=== PATIENT | male | born 1995 | race Caucasian/White ===

== ENCOUNTER 2018-07-04 17:00 | Emergency (ER) | payer BC ==
--- NOTE | 2018-07-04 17:27 | EDM.PDOC ---
ED HPI GENERAL MEDICAL PROBLEM - General Chief Complaint: Upper Extremity Injury/Pain Stated Complaint: PT HURT RT THUMB Time Seen by Provider: 07/04/18 17:05 Source of Information: Reports: Patient History Limitations: Reports: No Limitations - History of Present Illness INITIAL COMMENTS - FREE TEXT/NARRATIVE: History of present illness: []Patient slammed his right distal thumb in a car door 3 days ago. Patient feels it's "fractured or broken". He denies any numbness or tingling but has continuing pain. Review of systems: As per history of present illness and below otherwise all systems reviewed and negative. Past medical history: As per history of present illness and as reviewed below otherwise noncontributory. Surgical history: As per history of present illness and as reviewed below otherwise noncontributory. Social history: No reported history of drug or alcohol abuse. Family history: As per history of present illness and as reviewed below otherwise noncontributory. Physical exam: General: Well developed, well nourished in NAD HEENT: Atraumatic, normocephalic, pupils reactive, negative for conjunctival pallor or scleral icterus, mucous membranes moist, throat clear, neck supple, nontender, trachea midline. Lungs: Clear to auscultation, breath sounds equal bilaterally, chest nontender. Heart: S1S2, regular, negative for clicks, rubs, or JVD. Abdomen: Soft, nondistended, nontender. Negative for masses or hepatosplenomegaly. Negative for costovertebral tenderness. Pelvis: Stable nontender. Genitourinary: Deferred. Rectal: Deferred. Extremities: Atraumatic, no obvious deformities, no swelling or ecchymosis of the right thumb.. Neurovascular unremarkable. Neuro: Awake, alert, oriented. Cranial nerves II through XII unremarkable. Cerebellum unremarkable. Motor and sensory unremarkable throughout. Exam nonfocal. Skin:warm and dry Diagnostics: X-ray Therapeutics: None ED Course: Unremarkable Impression: Right thumb contusion Prescriptions: None Plan: Motrin, Tylenol for pain. Definitive disposition and diagnosis as appropriate pending reevaluation and review of above. Right 1-Thumb Pain Score (Numeric/FACES): 5 - Related Data Allergies Allergy/AdvReac Type Severity Reaction Status Date / Time No Known Allergies Allergy Verified 07/04/18 17:16 Home Meds: Home Meds . [No Known Home Meds] 07/04/18 [History] Past Medical History - Past Health History Medical/Surgical History: Denies Medical/Surgical History - Infectious Disease History Infectious Disease History: Reports: None Social & Family History - Family History Family Medical History: Noncontributory - Tobacco Use Smoking Status *Q: Never Smoker - Caffeine Use Caffeine Use: Reports: None - Recreational Drug Use Recreational Drug Use: No Review of Systems - Review of Systems Review Of Systems: ROS reveals no pertinent complaints other than HPI. ED EXAM, GENERAL - Physical Exam Exam: See Below (See history of present illness) Course - Vital Signs Last Recorded V/S: Last Vital Signs Temp 98.2 F 07/04/18 17:16 Pulse 75 07/04/18 17:16 Resp 16 07/04/18 17:16 BP 128/66 07/04/18 17:16 Pulse Ox 97 07/04/18 17:16 - Orders/Labs/Meds Orders: Active Orders 24 hr Category Date Time Status Fingers Thumb Rt F5 [CR] Stat Exams 07/04/18 17:10 Taken Departure - Departure Time of Disposition: 18:26 Disposition: Home, Self-Care 01 Condition: Good Clinical Impression: Contusion of right thumb Qualifiers: Encounter type: initial encounter - Discharge Information *PRESCRIPTION DRUG MONITORING PROGRAM REVIEWED*: No *COPY OF PRESCRIPTION DRUG MONITORING REPORT IN PATIENT THELMA: No Referrals: PCP,None [Primary Care Provider] - Forms: ED Department Discharge Additional Instructions: The following information is given to patients seen in the emergency department who are being discharged to home. This information is to outline your options for follow-up care. We provide all patients seen in our emergency department with a follow-up referral. The need for follow-up, as well as the timing and circumstances, are variable depending upon the specifics of your emergency department visit. If you don't have a primary care physician on staff, we will provide you with a referral. We always advise you to contact your personal physician following an emergency department visit to inform them of the circumstance of the visit and for follow-up with them and/or the need for any referrals to a consulting specialist. The emergency department will also refer you to a specialist when appropriate. This referral assures that you have the opportunity for follow-up care with a specialist. All of these measure are taken in an effort to provide you with optimal care, which includes your follow-up. Under all circumstances we always encourage you to contact your private physician who remains a resource for coordinating your care. When calling for follow-up care, please make the office aware that this follow-up is from your recent emergency room visit. If for any reason you are refused follow-up, please contact the [facility] Emergency Department at and asked to speak to the emergency department charge nurse. [facility] Primary Care [address] [place] [address] - My Orders Last 24 Hours: My Active Orders 07/04/18 17:10 Fingers Thumb Rt F5 [CR] Stat - Assessment/Plan Last 24 Hours: My Active Orders 07/04/18 17:10 Fingers Thumb Rt F5 [CR] Stat
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
== END 2018-07-04 18:45 | disposition home or self-care (01) ==
LOC: MW.ED 17:00
DX: S60.011A Contusion of right thumb without damage to nail, initial encounter (principal); W23.0XXA Caught, crushed, jammed, or pinched between moving objects, initial encounter
CPT/HCPCS: 73140-26-F5; 73140-F5; 99283

== ENCOUNTER 2019-08-03 04:08 | Emergency (ER) | payer SELFPAY ==
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
== END 2019-08-03 04:27 | disposition home or self-care (01) ==
LOC: MW.ED 04:08
DX: Z02.89 Encounter for other administrative examinations (principal)
CPT/HCPCS: 82962; 99283

== ENCOUNTER 2021-08-28 20:07 | Emergency (ER) | payer BC | END 2021-08-28 22:17 | disposition left against medical advice (07) | LOC: MW.ED 20:07 | DX: M54.9 Dorsalgia, unspecified (principal); Z53.21 Procedure and treatment not carried out due to patient leaving prior to being seen by health care provider ==

== ENCOUNTER 2021-09-04 02:10 | Emergency (ER) | payer BC ==
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
== END 2021-09-04 05:40 | disposition home or self-care (01) ==
LOC: MW.ED 02:10
DX: F10.129 Alcohol abuse with intoxication, unspecified (principal)
CPT/HCPCS: 99284

== ENCOUNTER 2021-09-06 13:49 | Emergency (ER) | payer BC ==
--- NOTE | 2021-09-06 14:06 | EDM.PDOC ---
ED HPI GENERAL MEDICAL PROBLEM - General Stated Complaint: PAIN IN NECK Time Seen by Provider: 09/06/21 14:05 Source of Information: Reports: Patient History Limitations: Reports: No Limitations - History of Present Illness INITIAL COMMENTS - FREE TEXT/NARRATIVE: HISTORY AND PHYSICAL: History of present illness: Patient is a 26-year-old male who presents to the emergency room with complaints of generalized neck pain, worse on the right that radiates down his right arm with mild paresthesias. He states he has noticed this over the past 1 week, worse with rotating his neck side to side. He states the pain and paresthesias are intermittent, lasting anywhere from a few seconds to hours. He did have surgery approximately 4 years ago to his cervical spine due to a bulging disc. He states he does have hardware and has not had any postoperative complications. He denies any injury, trauma or falls. He denies any weakness or Patient denies any fever, chills, headache, change in vision, syncope or near syncope. Denies any chest pain, back pain, shortness of breath or cough. Denies any abdominal pain, nausea, vomiting, diarrhea, constipation or dysuria. Has not noted any blood in urine or stool. Patient has been eating and drinking appropriately. No recent travel or sick contacts. Review of systems: As per history of present illness and below otherwise all systems reviewed and negative. Past medical history: As per history of present illness and as reviewed below otherwise noncontributory. Surgical history: As per history of present illness and as reviewed below otherwise noncon tributory. Social history: See social history for further information Family history: As per history of present illness and as reviewed below otherwise noncontributory. Physical exam: General: Well developed and well nourished. Alert and orientated x 3. Nontoxic in appearance and in no acute distress. Vital signs are stable and have been reviewed by me. Nursing notes were reviewed. HEENT: Atraumatic, normocephalic, pupils equal and reactive bilaterally, negative for conjunctival pallor or scleral icterus, mucous membranes moist, TMs normal bilaterally, throat clear, neck supple, nontender, trachea midline. No drooling or trismus noted. No meningeal signs. No hot potato voice noted. Lungs: Clear to auscultation bilaterally. No wheezes, rales, or rhonchi. Chest nontender. Normal work of breathing, no accessory muscles used. Heart: S1S2, regular rate and rhythm without overt murmur, gallops, or rubs. No JVD. No peripheral edema Abdomen: Soft, nondistended, nontender. Normoactive bowel sounds. Negative for masses or costovertebral tenderness. C-spine/Back: No pinpoint vertebral tenderness upon palpation. No crepitus, step-offs or obvious deformities. Generalized paraspinous tenderness bilaterally to the cervical spine, scars noted. Pain does go into the right trapezius muscle. Patient is ambulatory into the emergency room without difficulty or deficit. Able to rock back on heels and walk on toes. Denies any urinary or fecal incontinence. Denies any numbness, tingling or saddle paresthesia. No concerns of serious infection, fracture or cord compression, or cauda equina syndrome. Deep tendon reflexes brisk bilaterally. Skin: Healed scare to mid c-spine. Intact, warm, dry. No lesions or rashes noted. Hematologic: No petechiae or purpra. Mucosa appropriate color and normal nail bed color and refill. Extremities: Atraumatic, moves all extremities per self without difficulty or deficits, negative for cords or calf pain. Equal strength to upper and lower extremities bilaterally. Negative can test. Neurovascular unremarkable. Neuro: Awake, alert, oriented. Cranial nerves II through XII unremarkable. Cerebellum unremarkable. Motor and sensory unremarkable throughout. Exam nonfocal. Psychiatric: Mood and affect are appropriate. Normal thought process. Answering questions appropriately. Please note that the patient was seen and evaluated during the 2019 SARS-CoV-2 novel coronavirus pandemic period. Community viral transmission is ongoing at time of this encounter and the emergency department is operating under pandemic response procedures. Medical Decision Making: Patient is a 26-year-old male who has a history of cervical neck surgery 4 years ago who presents to the emergency room with increased cervical neck pain over the past 1 week. He states he does have intermittent paresthesias and pain with range of motion. He states his range of motion is not limited and he has not had any loss of strength or mobility. He reports he had an x-ray done a few months ago for pain although no findings were noted. Due to surgery and hardware letter will do a CT scan. CT shows posterior C3-C6 postop changes, as above. Multilevel spondylosis without significant bony canal stenosis. Moderate bony foraminal stenosis on the left at C3-4 and on the right at C4-5. Lordosis noted. I have talked with the patient about today's findings, in addition to providing specific details for plan of care. I did encourage patient to follow-up with his primary care provider for an outpatient MRI for further evaluation of the stenosis. Currently has no neurological symptoms and does not meet requirements for inpatient MRI. Reassessment at the time of disposition demonstrates that the patient is in no acute distress. Patient states he would prefer to follow-up with occupational health and have the MRI, requesting to not return to work until he is cleared. The patient is stable for discharge, counseling was provided and we discussed in great detail signs and symptoms that would prompt them to return to the Emergency Department. Medication, follow up and supportive care measures were reviewed and discussed. Voices understanding and is agreeable to plan of care. Denies any further questions or concerns at this time. Diagnostics: CT cervical spine Therapeutics: Toradol Prescription: Diclofenac, Norflex Impression: Neck pain Plan: 1. Imaging today shows no acute fractures or dislocations. There is some foraminal stenosis on the left at C3-C4 and right at C4-C5, may want to consider getting an MRI as an outpatient for further evaluation of this 2. When resting please lay on a flat firm surface. Limit your immobility to prevent muscle stiffness. Get up to ambulate/move around/gentle stretching multiple times throughout the day. May alternate heat and ice to the painful areas 3. Tylenol as needed for back pain. Otherwise take the prescribed Flexeril and diclofenac as directed. Diclofenac is an anti-inflammatory so do not take any a dditional NSAIDs with this medication, such as ibuprofen or Aleve. Flexeril as a muscle relaxant, this medication may cause drowsiness a do not take it will driving her needing to be functioning outside of the house. 4. Please follow-up with your primary care provider as we discussed. 5. If your symptoms should worsen, new symptoms develop or any of the signs and symptoms we discussed should arise please return to the emergency room or call 911 (if needed). Definitive disposition and diagnosis as appropriate pending reevaluation and review of above. Right Neck Pain Score (Numeric/FACES): 9 - Related Data Allergies Allergy/AdvReac Type Severity Reaction Status Date / Time No Known Allergies Allergy Verified 09/06/21 14:01 Home Meds: Home Meds Cyclobenzaprine [Flexeril] 10 mg PO TID PRN #21 tab 09/06/21 [Rx] Diclofenac Sodium [Voltaren] 75 mg PO BIDMEALS PRN #14 tab.cr 09/06/21 [Rx] Past Medical History - Past Health History Medical/Surgical History: Denies Medical/Surgical History - Infectious Disease History Infectious Disease History: Reports: None - Past Surgical History Musculoskeletal Surgical History: Reports: Other (See Below) Other Musculoskeletal Surgeries/Procedures:: neck surgery Social & Family History - Family History Family Medical History: No Pertinent Family History - Caffeine Use Caffeine Use: Reports: None ED ROS GENERAL - Review of Systems Review Of Systems: Comprehensive ROS is negative, except as noted in HPI. ED EXAM, UPPER BACK/NECK PAIN - Physical Exam Exam: See Below (See dictation) Course - Vital Signs Last Recorded V/S: Last Vital Signs Temp 98.4 F 09/06/21 14:01 Pulse 68 09/06/21 15:01 Resp 16 09/06/21 15:01 BP 121/62 09/06/21 15:01 Pulse Ox 96 09/06/21 15:01 - Orders/Labs/Meds Meds: Medications Discontinued Medications Generic Name Dose Route Start Last Admin Trade Name Freq PRN Reason Stop Dose Admin Ketorolac Tromethamine 60 mg 09/06/21 14:12 09/06/21 14:31 Ketorolac 60 Mg/2 Ml Sdv IM 09/06/21 14:13 60 mg ONETIME ONE Administration Departure - Departure Time of Disposition: 14:37 Disposition: Home, Self-Care 01 Clinical Impression: Neck muscle strain Qualifiers: Encounter type: initial encounter Qualified Code(s): S16.1XXA - Strain of muscle, fascia and tendon at neck level, initial encounter - Discharge Information Prescriptions: Cyclobenzaprine [Flexeril] 10 mg PO TID PRN #21 tab PRN Reason: Muscle Spasm Diclofenac Sodium [Voltaren] 75 mg PO BIDMEALS PRN #14 tab.cr PRN Reason: Pain Instructions: Muscle Strain, [id number] Referrals: PCP,None [Primary Care Provider] - Additional Instructions: The following information is given to patients seen in the emergency department who are being discharged to home. This information is to outline your options for follow-up care. We provide all patients seen in our emergency department with a follow-up referral. The need for follow-up, as well as the timing and circumstances, are variable depending upon the specifics of your emergency department visit. If you don't have a primary care physician on staff, we will provide you with a referral. We always advise you to contact your personal physician following an emergency department visit to inform them of the circumstance of the visit and for follow-up with them and/or the need for any referrals to a consulting specialist. The emergency department will also refer you to a specialist when appropriate. This referral assures that you have the opportunity for follow-up care with a specialist. All of these measure are taken in an effort to provide you with optimal care, which includes your follow-up. Under all circumstances we always encourage you to contact your private physician who remains a resource for coordinating your care. When calling for follow-up care, please make the office aware that this follow-up is from your recent emergency room visit. If for any reason you are refused follow-up, please contact the [facility] Emergency Department at and asked to speak to the emergency department charge nurse. [facility] [address] [place] [id number] [facility] [address] [place] [id number] Thank you for choosing the [facility] emergency department in [place] for your medical needs today. It was a pleasure caring for you. Today you were seen in the emergency department for neck pain Your prescription was electronically sent to: [place] [facility] 1. Imaging today shows no acute fractures or dislocations. There is some foraminal stenosis on the left at C3-C4 and right at C4-C5, may want to consider getting an MRI as an outpatient for further evaluation of this 2. When resting please lay on a flat firm surface. Limit your immobility to prevent muscle stiffness. Get up to ambulate/move around/gentle stretching multiple times throughout the day. May alternate heat and ice to the painful areas 3. Tylenol as needed for back pain. Otherwise take the prescribed Flexeril and diclofenac as directed. Diclofenac is an anti-inflammatory so do not take any additional NSAIDs with this medication, such as ibuprofen or Aleve. Flexeril as a muscle relaxant, this medication may cause drowsiness a do not take it will driving her needing to be functioning outside of the house. 4. Please follow-up with your primary care provider as we discussed. 5. If your symptoms should worsen, new symptoms develop or any of the signs and symptoms we discussed should arise please return to the emergency room or call 911 (if needed). Sepsis Event Note (ED) - Evaluation Sepsis Screening Result: No Definite Risk - Focused Exam Vital Signs: Vital Signs Temp Pulse Resp BP Pulse Ox 09/06/21 15:01 68 16 121/62 96 09/06/21 14:01 98.4 F 70 16 123/52 L 96
[2021-09-06] MEDS ORDERED: Ketorolac 60 MG/2 ML SDV IM ONE (14:12)
--- NOTE | 2021-09-06 15:32 | CT ---
INDICATION: Right neck pain and radiculopathy. Spinal fusion 4 years ago. TECHNIQUE: Volumetric helical scanning of the cervical spine was performed without contrast material. Sagittal and coronal reconstructions were also obtained. COMPARISON: None. FINDINGS: Postop changes of C3 posterior decompression are demonstrated as well as left C4, C5 and C6 laminectomies with placement of straps and screws across the laminectomy defects. No intersegment fusion is evident. Multilevel spondylosis is demonstrated. No significant bony canal stenosis is evident. Moderate bony foraminal stenosis noted on the left at C3-4 and on the right at C4-5. Last the cervical spine is a lordotic. IMPRESSION: 1. Posterior C3-C6 postop changes, as above. 2. Multilevel spondylosis without significant bony canal stenosis. 3. Moderate bony foraminal stenosis on the left at C3-4 and on the right at C4-5. Consider MRI. 4. Alordosis. Please note that all CT scans at this facility use dose modulation, iterative reconstruction, and/or weight-based dosing when appropriate to reduce radiation dose to as low as reasonably achievable. Dictated by Hermes Loza MD @ 09/06/2021 3:30:09 PM (Electronically Signed)
== END 2021-09-06 16:17 | disposition home or self-care (01) ==
LOC: MW.ED 13:49
DX: S16.1XXA Strain of muscle, fascia and tendon at neck level, initial encounter (principal); X58.XXXA Exposure to other specified factors, initial encounter
CPT/HCPCS: 72125; 96372; 99283; J1885

== ENCOUNTER 2023-04-07 21:44 | Emergency (ER) | payer BC | END 2023-04-08 01:40 | disposition left against medical advice (07) | LOC: MW.ED 21:44 | DX: Z53.21 Procedure and treatment not carried out due to patient leaving prior to being seen by health care provider (principal) ==

== ENCOUNTER 2024-04-24 23:38 | Emergency (ER) | payer SELFPAY ==
[2024-04-25] MEDS: Lidocaine 1% with EPINEPHrine 1:100,000 10 ML MDV INJECT ONE (01:35)
[2024-04-25] MEDS: Lidocaine 2% Viscous Solution 15 ML UD PO STA (01:36)
[2024-04-25] MEDS: Ibuprofen 600 MG Tab PO ONE (02:16)
[2024-04-25] MEDS: Acetaminophen/oxyCODONE 325-5 MG Tab PO ONE (02:17)
== END 2024-04-25 03:44 | disposition home or self-care (01) ==
LOC: MW.ED 23:38
DX: K04.6 Periapical abscess with sinus (principal)
CPT/HCPCS: 41800; 99283; A9270; J3490